=== PATIENT | female | born 1995 | race African-American/Black ===

== ENCOUNTER → 2021-01-28 07:51 | Outpatient (CLI) | payer OTHER, SELFPAY ==
[2021-01-28 12:28] LABS: Influenza Control Positive
[2021-01-28 18:54] LABS: SARS-CoV-2 RNA PCR Negative
== END ==
PROVIDERS: PCP Internal Medicine; Visit Provider Internal Medicine
DX: Z20.822 Contact with and (suspected) exposure to COVID-19 (principal)
CPT/HCPCS: 87804; C9803; U0003; U0005

== ENCOUNTER 2021-02-01 09:43 | Outpatient (CLI) | payer OTHER, SELFPAY ==
--- NOTE | ~2021-02-01 | XR_ITS ---
EXAMINATION: XR chest 2V DATE: 02/01/2021 10:16 INDICATION: Cough, unspecified TECHNIQUE: Frontal and lateral views of the chest are obtained COMPARISON: 05/15/2006 FINDINGS: The lungs are free of acute opacities. There is no pleural effusion or pneumothorax. The ca rdiomediastinal silhouette is normal. The visualized bones and soft tissues are unremarkable. IMPRESSION: 1. No acute cardiopulmonary abnormality. Reviewed, dictated and finalized at location A. [facility] [employer]
[2021-02-01 10:32] LABS: Alanine Aminotransferase 17 U/L (4-35); Albumin Level 4.5 g/dL (3.5-5.1); Alkaline Phosphatase 98 U/L (38-126); Anion Gap 8 mmol/L (8-16); Aspartate Amino Transferase 38 U/L (14-36); Bilirubin,Total 0.5 mg/dL (0.2-1.3); Blood Urea Nitrogen 12 mg/dL (7-17); Calcium 9.4 mg/dL (8.4-10.2); Carbon Dioxide 29 mmol/L (22-30); Chloride 103 mmol/L (98-107); Cholesterol 192 mg/dL (0-200); Estimated Glomerular Filt Rate > 60; Glucose 95 mg/dL (65-110); HDL Direct 76 mg/dL; Potassium 4.3 mmol/L (3.4-5.0); Sodium 140 mmol/L (137-145); Triglycerides 94 mg/dL (<150)
[2021-02-01 10:43] LABS: LDL Cholesterol Direct 72 mg/dL
[2021-02-01 11:05] LABS: Vitamin D 25 Hydroxy 19.9 ng/mL
== END 2021-02-01 09:44 | disposition home or self-care (01) ==
PROVIDERS: PCP Internal Medicine; Visit Provider Nurse Practitioner
DX: R05.9 Cough, unspecified (principal); F32.9 Major depressive disorder, single episode, unspecified; Z13.6 Encounter for screening for cardiovascular disorders; Z13.220 Encounter for screening for lipoid disorders; Z13.21 Encounter for screening for nutritional disorder
CPT/HCPCS: 36415; 71046; 80053; 80061; 82306; 84443

== ENCOUNTER 2021-05-25 09:38 | Outpatient (CLI) | payer OTHER, SELFPAY ==
[2021-05-25 10:52] LABS: Hemoglobin A1C 5.2 % (<5.7)
== END 2021-05-25 09:39 | disposition home or self-care (01) ==
LOC: ANHLAB 09:39
PROVIDERS: PCP Internal Medicine; Visit Provider Internal Medicine
DX: R73.03 Prediabetes (principal)
CPT/HCPCS: 36415; 83036

== ENCOUNTER 2021-06-27 13:01 | Outpatient (RCR) | payer BC, SELFPAY ==
[2021-06-27 13:05] VITALS: BMI 34.2
[2021-06-27 13:15] VITALS: BMI 34.2
== END 2021-09-11 10:33 | disposition home or self-care (01) ==
LOC: ANHDMC 13:01
PROVIDERS: PCP Internal Medicine; Visit Provider Internal Medicine
DX: R73.03 Prediabetes (principal); Z71.3 Dietary counseling and surveillance
CPT/HCPCS: 97802

== ENCOUNTER 2022-10-29 00:25 | Emergency (ER) | payer OTHER, SELFPAY ==
[2022-10-29 00:39] VITALS: BP 142/93; PULSE 75; RESP 16; TEMP 36.8; O2SAT 99
[2022-10-29 01:18] LABS: Appearance Urine Slightly Cloudy (Clear); Bilirubin Urine 2+ (Negative); Blood Urine 3+ (Negative); Color Urine Red (Yellow); Glucose Urine UA Negative (Negative); Ketones Urine 1+ mg/dL (Negative); Leukocyte Esterase Ur Trace LEU/UL (Negative); Nitrate Urine Positive (Negative); Protein Urine 3+ mg/dL (Negative); Specific Grav Ur 1.025 (1.001-1.035); pH Urine 5.5 (5.0-9.0)
[2022-10-29 01:23] LABS: Add Urine Microscopic? YES
[2022-10-29 01:24] LABS: RBC Urine 51-100 /hpf (0-2); WBC Urine 16-20 /hpf (0-3)
[2022-10-29 04:21] VITALS: BP 133/96; PULSE 69; RESP 16; O2SAT 100
[2022-10-29 05:16] VITALS: BP 128/82; O2SAT 100
[2022-10-29 05:31] VITALS: BP 122/80; O2SAT 100
[2022-10-29 06:01] VITALS: BP 119/84; O2SAT 100
[2022-10-29 06:31] VITALS: BP 122/89; O2SAT 100
--- NOTE | 2022-10-29 07:15 | ED.GENADULT ---
HPI - General Adult General Chief complaint: Urogenital-Female Stated complaint: hematuria Time Seen by Provider: 10/29/22 06:54 History of Present Illness HPI narrative: Patient is a 27-year-old female who presents ER with hematuria. Sudden onset this morning. No fevers or chills or sweats. Patient is having frequency and pressure. Mild dysuria. Related Data Allergies Allergy/AdvReac Type Severity Reaction Status Date / Time No Known Allergies Allergy Unknown Verified 10/29/22 04:16 Review of Systems Constitutional: Constitutional: Denies chills, Denies fatigue and Denies fever(s) Gastrointestinal: Gastrointestinal: Denies abdominal pain, Denies nausea and Denies vomiting Genitourinary: Genitourinary: Reports hematuria, Reports nocturia, Reports dysuria and Denies flank pain PMFSH Past Medical History Medical History (Updated 10/29/22 @ 17:36 by Jeremy Mosley MD) Adult ADHD Surgical History Surgical History (Updated 10/29/22 @ 17:36 by Jeremy Mosley MD) No pertinent past surgical history Family History Family History Mother Diabetes mellitus Family history of diabetes mellitus in first degree relative Father Patient's father is in good health Social History Social History (Updated 10/25/22 @ 09:02 by MINNIE King) Smoking status: Never smoker Alcohol intake: never Substance use: never Lack of Transportation: No Lack of Food: Never True Current Housing: I Have Housing Concerned About Future Housing: No Difficulty Paying Gas/Electric Bills: No Difficulty Paying for Meds: No Currently Unemployed: No Education: Associate Degree Difficulty w/ Childcare or Family Care: No Spiritual care concerns: No Exam Narrative: GENERAL: Well-appearing, well-nourished, and in no acute distress. HEAD: Normocephalic, atraumatic. ENT: Mucous membranes moist. CHEST: Clear to auscultation. No respiratory distress. HEART: Regular rate and rhythm. Normal peripheral pulses. ABDOMEN: Soft, nontender, nondistended. EXTREMITIES: Normal range of motion. No edema. NEURO: Alert and oriented x3. PSYCH: Normal mood and affect. Course Course Emergency Course: Urinalysis consistent with hemorrhagic cystitis. Discharge home with cephalexin. Patient aware of diagnosis and treatment plan. Vital Signs Vital signs: Vital Signs Temperature 98.3 F 10/29/22 00:39 Pulse Rate 75 10/29/22 00:39 Respiratory Rate 16 10/29/22 00:39 Blood Pressure 142/93 H 10/29/22 00:39 Pulse Oximetry 99 10/29/22 00:39 Oxygen Delivery Room Air 10/29/22 00:39 Temperature 98.3 F 10/29/22 00:39 Pulse Rate 69 10/29/22 04:21 Respiratory Rate 16 10/29/22 04:21 Blood Pressure 122/89 10/29/22 06:31 Pulse Oximetry 100 10/29/22 06:31 Oxygen Delivery Room Air 10/29/22 00:39 Medical Decision Making Vital Signs Vital Signs: Vital Signs Temperature 98.3 F 10/29/22 00:39 Pulse Rate 75 10/29/22 00:39 Respiratory Rate 16 10/29/22 00:39 Blood Pressure 142/93 H 10/29/22 00:39 Pulse Oximetry 99 10/29/22 00:39 Oxygen Delivery Room Air 10/29/22 00:39 Temperature 98.3 F 10/29/22 00:39 Pulse Rate 69 10/29/22 04:21 Respiratory Rate 16 10/29/22 04:21 Blood Pressure 122/89 10/29/22 06:31 Pulse Oximetry 100 10/29/22 06:31 Oxygen Delivery Room Air 10/29/22 00:39 Lab Data Labs: Lab Results 10/29/22 Range/Units 00:45 Urine Color Red H (Yellow) Urine Appearance Slightly cloudy (Clear) Urine pH 5.5 (5.0-9.0) Ur Specific [place] 1.025 (1.001-1.035) Urine Protein 3+ H (Negative) mg/dL Urine Glucose (UA) Negative (Negative) mg/dL Urine Ketones 1+ H (Negative) mg/dL Ur Blood (Man) 3+ H (Negative) Urine Nitrate Positive H (Negative) Urine Bilirubin 2+ H (Negative) Urine Urobilinogen 2.0 H (<2.0) mg/dL Leukoc
== END 2022-10-29 07:26 | disposition home or self-care (01) ==
PROVIDERS: Emergency Medicine; Emergency Provider Emergency Medicine; PCP Family Medicine
DX: N30.01 Acute cystitis with hematuria (principal); F90.9 Attention-deficit hyperactivity disorder, unspecified type
CPT/HCPCS: 81001; 87077; 87086; 87186; 99283

== ENCOUNTER 2023-01-07 14:37 | Outpatient (CLI) | payer OTHER, SELFPAY ==
[2023-01-07 15:27] LABS: Mean Corpuscular Hemoglobin 27.3 pg (26-34); Mean Corpuscular Volume 88.2 fl (80-100); Mean Platelet Volume 9.8 fl (7.4-10.4); Platelet Count Result 331 k/mm3 (150-375); Red Blood Count 4.76 M/mm3 (4.2-5.4); Red Cell Distribution Width 13.2 % (11.5-14.5); White Blood Count 4.7 K/mm3 (4.5-10.0)
[2023-01-07 15:35] LABS: Alanine Aminotransferase 13 U/L (6-35); Albumin Level 4.6 g/dL (3.5-5.1); Alkaline Phosphatase 83 U/L (38-126); Anion Gap 9 mmol/L (8-16); Aspartate Amino Transferase 31 U/L (14-36); Bilirubin,Total 0.4 mg/dL (0.2-1.3); Blood Urea Nitrogen 16 mg/dL (7-17); Calcium 9.8 mg/dL (8.4-10.2); Carbon Dioxide 29 mmol/L (22-30); Chloride 104 mmol/L (98-107); Cholesterol 180 mg/dL (0-200); Estimated Glomerular Filt Rate > 60; Glucose 100 mg/dL (65-110); HDL Direct 57 mg/dL; Potassium 3.8 mmol/L (3.4-5.0); Sodium 142 mmol/L (137-145); Triglycerides 145 mg/dL (<150)
[2023-01-07 15:46] LABS: LDL Cholesterol Direct 82 mg/dL
[2023-01-07 16:18] LABS: Hemoglobin A1C 5.6 % (<5.7)
[2023-01-09 09:17] LABS: Amphetamines NEGATIVE ng/mL (<500); Barbiturates NEGATIVE ng/mL (<300); Benzodiazepines NEGATIVE ng/mL (<100); Cocaine Metabolite NEGATIVE ng/mL (<150); Marijuana Metabolite POSITIVE ng/mL (<20); Methadone Metabolite NEGATIVE ng/mL (<100); Opiates NEGATIVE ng/mL (<100); Oxidant NEGATIVE mcg/mL (<200); pH 6.6 (4.5-9.0)
== END 2023-01-07 14:38 | disposition home or self-care (01) ==
LOC: ANHLAB 14:38
PROVIDERS: PCP Family Medicine; Visit Provider Nurse Practitioner Family
DX: Z00.00 Encounter for general adult medical examination without abnormal findings (principal); F90.9 Attention-deficit hyperactivity disorder, unspecified type; F32.9 Major depressive disorder, single episode, unspecified; G47.10 Hypersomnia, unspecified; J31.0 Chronic rhinitis; J45.909 Unspecified asthma, uncomplicated; R73.03 Prediabetes
CPT/HCPCS: 36415; 80053; 80061; 80307; 83036; 85027

== ENCOUNTER 2024-01-28 08:43 | Outpatient (CLI) | payer OTHER, SELFPAY ==
[2024-01-28 09:19] LABS: Hematocrit 41.8 % (37.0-47.0); Hemoglobin 13.2 g/dL (12.0-15.0); Mean Corpuscular HGB Conc 31.6 g/dl (32-36); Mean Corpuscular Hemoglobin 28.2 pg (26-34); Mean Corpuscular Volume 89.3 fl (80-100); Platelet Count Result 286 k/mm3 (150-375); Red Blood Count 4.68 M/mm3 (4.2-5.4); Red Cell Distribution Width 12.9 % (11.5-14.5); White Blood Count 4.5 K/mm3 (4.5-10.0)
[2024-01-28 09:37] LABS: Alanine Aminotransferase 13 U/L (6-35); Albumin Level 4.6 g/dL (3.5-5.1); Alkaline Phosphatase 68 U/L (38-126); Anion Gap 6 mmol/L (4-12); Aspartate Amino Transferase 35 U/L (14-36); Bilirubin,Total 0.4 mg/dL (0.2-1.3); Blood Urea Nitrogen 16 mg/dL (7-17); Calcium 9.4 mg/dL (8.4-10.2); Carbon Dioxide 30 mmol/L (22-30); Chloride 106 mmol/L (98-107); Cholesterol 207 mg/dL (0-200); Estimated Glomerular Filt Rate > 60; Glucose 97 mg/dL (65-110); HDL Direct 79 mg/dL; Potassium 4.1 mmol/L (3.4-5.0); Sodium 142 mmol/L (137-145); Triglycerides 108 mg/dL (<150)
[2024-01-28 09:48] LABS: LDL Cholesterol Direct 84 mg/dL
[2024-01-28 10:27] LABS: Hemoglobin A1C 5.6 % (<5.7)
[2024-01-28 10:36] LABS: Free T4 Free Thyroxine 0.94 ng/dL (0.78-2.19)
[2024-01-28 11:05] LABS: Vitamin D 25 Hydroxy < 12.8 ng/mL
[2024-01-29 23:14] LABS: Amphetamines NEGATIVE ng/mL (<500); Barbiturates NEGATIVE ng/mL (<300); Benzodiazepines NEGATIVE ng/mL (<100); Cocaine Metabolite NEGATIVE ng/mL (<150); Marijuana Metabolite NEGATIVE ng/mL (<20); Methadone Metabolite NEGATIVE ng/mL (<100); Opiates NEGATIVE ng/mL (<100); Oxidant NEGATIVE mcg/mL (<200); PCP NEGATIVE ng/mL (<25); pH 5.2 (4.5-9.0)
== END 2024-01-28 08:44 | disposition home or self-care (01) ==
PROVIDERS: PCP Nurse Practitioner Family; Visit Provider Nurse Practitioner Family
DX: E55.9 Vitamin D deficiency, unspecified (principal); R79.89 Other specified abnormal findings of blood chemistry; F90.9 Attention-deficit hyperactivity disorder, unspecified type; R73.03 Prediabetes; F32.9 Major depressive disorder, single episode, unspecified; J45.909 Unspecified asthma, uncomplicated; Z68.32 Body mass index [BMI] 32.0-32.9, adult; Z79.899 Other long term (current) drug therapy
CPT/HCPCS: 36415; 80053; 80061; 80307; 82306; 83036; 84439; 84443; 85027

== ENCOUNTER 2024-10-30 15:37 | Outpatient (CLI) | payer OTHER, SELFPAY ==
--- NOTE | 2024-10-30 15:44 | ECG_ITS ---
Test Date: 2024-10-30 15:54:04 Measurements Intervals [place] Rate: 59 P: 9 RI: 156 QRS: 26 QRSD: 87 T: 16 QT: 396 QTc: 394 Interpretive Statements SINUS BRADYCARDIA No previous ECG available for comparison Electronically Signed On 10-31-2024 10:42:16 CDT by Mark Bergman M.D.
[2024-10-30 16:09] LABS: Hematocrit 41.1 % (37.0-47.0); Hemoglobin 13.1 g/dL (12.0-15.0); Mean Corpuscular HGB Conc 31.9 g/dl (32-36); Mean Corpuscular Hemoglobin 27.9 pg (26-34); Mean Corpuscular Volume 87.4 fl (80-100); Platelet Count Result 311 k/mm3 (150-375); Red Blood Count 4.70 M/mm3 (4.2-5.4); White Blood Count 6.1 K/mm3 (4.5-10.0)
[2024-10-30 16:23] LABS: Alanine Aminotransferase 11 U/L (6-35); Albumin Level 4.5 g/dL (3.5-5.1); Alkaline Phosphatase 80 U/L (38-126); Anion Gap 8 mmol/L (4-12); Aspartate Amino Transferase 32 U/L (14-36); Bilirubin,Total 0.3 mg/dL (0.2-1.3); Blood Urea Nitrogen 14 mg/dL (7-17); Calcium 9.3 mg/dL (8.4-10.2); Carbon Dioxide 30 mmol/L (22-30); Chloride 102 mmol/L (98-107); Cholesterol 191 mg/dL (0-200); Estimated Glomerular Filt Rate > 60; Glucose 93 mg/dL (65-110); HDL Direct 60 mg/dL; Potassium 3.8 mmol/L (3.4-5.0); Sodium 140 mmol/L (137-145); Total Protein 8.7 g/dL (6.3-8.2); Triglycerides 205 mg/dL (<150)
[2024-10-30 16:26] LABS: Hemoglobin A1C 5.8 % (<5.7)
== END 2024-10-30 15:38 | disposition home or self-care (01) ==
LOC: ANHLAB 15:39
PROVIDERS: PCP Nurse Practitioner Family; Visit Provider Nurse Practitioner Family
DX: Z13.1 Encounter for screening for diabetes mellitus (principal); F33.1 Major depressive disorder, recurrent, moderate; F90.9 Attention-deficit hyperactivity disorder, unspecified type; F41.9 Anxiety disorder, unspecified; E66.9 Obesity, unspecified; E55.9 Vitamin D deficiency, unspecified; Z13.220 Encounter for screening for lipoid disorders; Q17.8 Other specified congenital malformations of ear; J31.0 Chronic rhinitis; R51.9 Headache, unspecified; J45.20 Mild intermittent asthma, uncomplicated; G47.10 Hypersomnia, unspecified; Z13.6 Encounter for screening for cardiovascular disorders
CPT/HCPCS: 36415; 80053; 80061; 83036; 85027; 93005

== ENCOUNTER 2024-12-01 14:20 | Outpatient (RCR) | payer OTHER, MEDICAID, SELFPAY ==
[2024-12-01 14:21] VITALS: BMI 34.5
[2024-12-01 15:10] VITALS: BMI 34.5
--- NOTE | 2024-12-02 08:17 | PCDIET ---
Nutrition consult completed. KIRTI
== END 2025-02-22 12:45 | disposition home or self-care (01) ==
LOC: ANHDMC 14:20
PROVIDERS: PCP Nurse Practitioner Family; Visit Provider Nurse Practitioner Family
DX: E66.9 Obesity, unspecified (principal); Z71.3 Dietary counseling and surveillance
CPT/HCPCS: 97802

== ENCOUNTER 2024-12-17 12:41 | Outpatient (CLI) | payer OTHER, SELFPAY ==
--- NOTE | ~2024-12-17 | XR_ITS ---
EXAMINATION: XR chest 2V 12/17/2024 13:06 INDICATION: History of asthma with shortness of breath PROCEDURE: 2 view chest COMPARISON: 02/01/2021 FINDINGS: The lungs are clear. The cardiomediastinal silhouette is within normal limits. There are no pleural effusions. There is no pneumothorax suspected. IMPRESSION: 1: NO ACUTE CARDIOPULMONARY DISEASE. Reviewed, dictated and finalized at location O.
== END 2024-12-17 12:42 | disposition home or self-care (01) ==
PROVIDERS: PCP Nurse Practitioner Family; Visit Provider Nurse Practitioner Family
DX: R05.9 Cough, unspecified (principal)
CPT/HCPCS: 71046